=== PATIENT | female | born 1990 ===

== ENCOUNTER 2018-12-05 09:15 | Emergency (ER) | payer OTHER ==
[2018-12-05 09:18] VITALS: BMI 30.2
[2018-12-05 09:20] VITALS: BP 99/60; PULSE 69; RESP 18; TEMP 98.1; O2SAT 98
--- NOTE | 2018-12-05 10:08 | ED PDOC ---
Upper Extremity Pain/Injury Time Seen by Provider: 12/05/18 09:35 Chief Complaint (Nursing): Upper Extremity Problem/Injury Chief Complaint (Provider): left shoulder and hip pain History Per: Patient History/Exam Limitations: no limitations Onset/Duration Of Symptoms: Days (x2 weeks) Exacerbating Factor(s): Movement Additional Complaint(s): Newton Hunter is a 28 year old female, with no significant past medical history, who presents to the emergency department complaining of left shoulder and hip pain onset for x2 weeks. Patient states pain is exacerbated with movement. She denies any decreased ROM of left shoulder but states her right hip is weak. Patient is unsure of what triggered the event. She denies any swelling, warmth, trauma or falls. No further medical complaints. PMD: None provided. Past Medical History Reviewed: Historical Data, Nursing Documentation, Vital Signs Vital Signs: Last Vital Signs Temp 98.1 F 12/05/18 09:19 Pulse 69 12/05/18 09:19 Resp 18 12/05/18 09:19 BP 99/60 L 12/05/18 09:19 Pulse Ox 98 12/05/18 09:31 - Medical History PMH: Mitral Valve Prolapse (Had surgery to correct) Denies: Chronic Kidney Disease - Surgical History Other surgeries: repair of Mitral Valve - Family History Family History: States: Unknown Family Hx - Social History Current smoker - smoking cessation education provided: No Alcohol: None Drugs: Denies - Home Medications Home Medications: Ambulatory Orders Medication Instructions Recorded RX: Naproxen 500 mg PO BID #20 tab 04/09/18 Naproxen [Naprosyn] 500 mg PO Q12H #20 tab 09/24/18 RX: Naproxen 500 mg PO BID #28 tab 12/05/18 - Allergies Allergies/Adverse Reactions: Allergies Allergy/AdvReac Type Severity Reaction Status Date / Time No Known Allergies Allergy Verified 12/05/18 09:30 Review of Systems ROS Statement: Except As Marked, All Systems Reviewed And Found Negative Musculoskeletal: Positive for: Shoulder Pain (left), Other (right hip pain) Physical Exam - Reviewed Nursing Documentation Reviewed: Yes Vital Signs Reviewed: Yes - Physical Exam Appears: Positive for: No Acute Distress Head Exam: Positive for: ATRAUMATIC, NORMAL INSPECTION, NORMOCEPHALIC Skin: Positive for: Normal Color, Warm, Dry Eye Exam: Positive for: Normal appearance, EOMI, PERRL Neck: Positive for: Normal, Painless ROM Cardiovascular/Chest: Positive for: Regular Rate, Rhythm. Negative for: Murmur Respiratory: Positive for: Normal Breath Sounds. Negative for: Respiratory Distress Gastrointestinal/Abdominal: Positive for: Normal Exam, Soft. Negative for: Tenderness, Guarding, Rebound Back: Positive for: Normal Inspection. Negative for: L CVA Tenderness, R CVA Tenderness, Vertebral Tenderness Extremity: Positive for: Normal ROM (upper and lower extremities). Negative for: Deformity, Swelling Neurologic/Psych: Positive for: Alert, Oriented, Other (Balance intact when standing on left leg. However, decreased balance when standing on right leg limited due to pain) - Laboratory Results Result Diagrams: 12/05/18 10:20 12/05/18 10:20 - ECG O2 Sat by Pulse Oximetry: 98 (RA) Pulse Ox Interpretation: Normal Medical Decision Making Medical Decision Making: Time: 09:35 Initial Impression: Work up for injury to shoulder and hip. X-rays, basic las to r/o infectious process Initial Plan: --BMP --CBC --ESR --Toradol 15 mg IVP --Toradol 15 mg IVP --Hip Min 2V w/ pelvis rt [RAD] --Shoulder left [RAD] --Reevaluation 11:11 Shoulder x-ray FINDINGS: BONES: No acute fracture. JOINTS: Unremarkable. SOFT TISSUES: Normal. OTHER FINDINGS: None. IMPRESSION: No demonstrated fracture dislocation. 11:11 Hip x-ray FINDINGS: BONES: No acute fracture. JOINTS: Normal. SOFT TISSUES: Normal. OTHER FINDINGS: None. IMPRESSION: No demonstrated fracture or dislocation. 12:10 X-rays show no acute bony abnormality, no dislocation or fracture. Patient reports improvement of pain with Toradol but elevated ESR. Patient advised to follow up with PMD in x2 weeks for further work up. Patient is medically stable for discharge home with Rx for Naproxen and advised to rest. Return parameters discussed. ------ Scribe Attestation: Documented by Yfn Klein, acting as a scribe for Lore Devine MD Provider Scribe Attestation: All medical record entries made by the Scribe were at my direction and personally dictated by me. I have reviewed the chart and agree that the record accurately reflects my personal performance of the history, physical exam, medical decision making, and the department course for this patient. I have also personally directed, reviewed, and agree with the discharge instructions and disposition. Disposition - Clinical Impression Clinical Impression: Joint pain - Disposition Disposition: Routine/Home Disposition Time: 12:10 Condition: STABLE Additional Instructions: Follow up with primary medical doctor regarding joint pain in two weeks. Take Motrin for pain. Rest joints and light movement without heavy weight. Prescriptions: RX: Naproxen 500 mg PO BID #28 tab Instructions: Muscle and Bone Pain (DC) Forms: [employer] (Uzbek), [facility] ED School/Work Excuse Print Language: ROMANIAN
[2018-12-05 10:41] LABS: BASO % 0.6 % (0.0-2.0); EOS # 0.2 K/uL (0.0-0.7); HEMOGLOBIN 12.6 g/dL (12.0-16.0); LYMPH # 1.5 K/uL (1.0-4.3); LYMPH % 42.4 % (20.0-40.0); MEAN CELL VOLUME 90.5 fl (81.0-99.0); MEAN CORPUSCULAR HEMOGLOBIN 29.7 pg (27.0-31.0); MEAN CORPUSCULAR HGB CONC 32.8 g/dL (33.0-37.0); MEAN PLATELET VOLUME 10.2 fl (7.2-11.7); MONO # 0.3 K/uL (0.0-0.8); MONO % 9.9 % (0.0-10.0); NEUT # 1.5 K/uL (1.8-7.0); NEUT % 42.1 % (50.0-75.0); NRBC % 0.2 % (0.0-0.0); RBC 4.25 Mil/uL (3.80-5.20); RED CELL DISTRIBUTION WIDTH 13.5 % (11.5-14.5); WHITE BLOOD COUNT 3.5 K/uL (4.8-10.8)
[2018-12-05 10:49] LABS: BLOOD UREA NITROGEN 13 mg/dl (7-17); CALCIUM 9.1 mg/dL (8.4-10.2); GFR NON-AFRICAN AMERICAN > 60
--- NOTE | 2018-12-05 11:14 | RAD ---
Date of service: 12/05/2018 PROCEDURE: Radiographs of the Left Shoulder HISTORY: right shoulder pain COMPARISON: No prior. FINDINGS: BONES: No acute fracture. JOINTS: Unremarkable. SOFT TISSUES: Normal. OTHER FINDINGS: None. IMPRESSION: No demonstrated fracture dislocation.
--- NOTE | 2018-12-05 11:15 | RAD ---
PROCEDURE: Right Hip Radiographs. HISTORY: right hip pain COMPARISON: None. FINDINGS: BONES: No acute fracture. JOINTS: Normal. SOFT TISSUES: Normal. OTHER FINDINGS: None. IMPRESSION: No demonstrated fracture or dislocation.
== END 2018-12-05 12:35 | disposition home or self-care (01) ==
LOC: MERGE 09:15 → H.ER 09:15
DX: M25.511 Pain in right shoulder (principal); M25.552 Pain in left hip; I34.1 Nonrheumatic mitral (valve) prolapse
CPT/HCPCS: 73030; 73502; 80048; 81025; 85025; 85651; 96372; 99283; J1885